=== PATIENT | male | born 1965 | race African-American/Black ===

== ENCOUNTER 2019-07-22 20:03 | Emergency (ER) | payer BC, OTHER ==
[~2019-07-22] VITALS: Ht 177.8 cm; Wt 86.2 kg
[2019-07-22 22:13] VITALS: BP 137/75
[2019-07-22] MEDS ORDERED: TETANUS-DIPTH-ACEL PERTUSSIS 0.5ML SYRG IM ONE (23:00)
== END 2019-07-22 23:35 | disposition home or self-care (01) ==
LOC: ER 20:08
DX: S01.81XA Laceration without foreign body of other part of head, initial encounter (principal); W18.00XA Striking against unspecified object with subsequent fall, initial encounter; Y93.89 Activity, other specified; Y92.098 Other place in other non-institutional residence as the place of occurrence of the external cause; Y99.8 Other external cause status
CPT/HCPCS: 90471; 90715